=== PATIENT | female | born 1955 | race Caucasian/White ===

== ENCOUNTER 2018-10-18 02:06 | Outpatient (CLI) | payer BC, SELFPAY ==
[2018-10-18 10:58] LABS: Hemoglobin A1C 5.5 % (4.5-6.2)
[2018-10-18 11:38] LABS: ALT 123 U/L (12-78); AST 59 U/L (15-37); Albumin 3.7 g/dL (3.4-5.0); Alkaline Phosphatase 62 U/L (46-116); Anion Gap 9.5 mmol/L (3-11); BUN 19 mg/dL (7-18); Bilirubin, Total 0.5 mg/dL (0.2-1.0); CO2 25.5 mmol/L (21.0-32.0); Calcium 9.6 mg/dL (8.5-10.1); Chloride 104 mmol/L (98-107); FREE T4 0.83 ng/dL (0.76-1.46); Glucose 107 mg/dL (70-100); Potassium 4.7 mmol/L (3.5-5.1); Sodium 139 mmol/L (136-145); TSH 1.18 uIU/mL (0.36-3.74); Total Protein 7.5 g/dL (6.4-8.2)
[2018-10-18 11:51] LABS: Calculated LDL 163 mg/dL; Cholesterol 251 mg/dL (50-200); HDL Cholesterol 72 mg/dL (40-60); Triglyceride 83 mg/dL (30-150)
== END 2018-10-18 02:26 ==
PROVIDERS: PCP Nurse Practitioner Family; Visit Provider Nurse Practitioner Family
DX: E78.5 Hyperlipidemia, unspecified (principal)
CPT/HCPCS: 36415; 80053; 80061; 83721; 83036; 84439; 84443

== ENCOUNTER 2018-10-31 00:40 | Outpatient (CLI) | payer BC, SELFPAY ==
--- NOTE | 2018-10-31 07:21 | DI.US_ITS ---
SYMPTOM/DIAGNOSIS: ELEVATED LFT'S, ALCOHOL USE EXCESSIVE R94.5 ABDOMINAL ULTRASOUND: Routine examination was performed. The aorta is of normal caliber. The inferior vena cava is unremarkable. The liver is normal in size measuring 15.6 cm in length. There is diffuse increased echogenicity of the liver consistent with fatty infiltration. No hepatic mass is seen. The gallbladder is unremarkable. No stones, sludge, gallbladder wall thickening or pericholecystic fluid is seen. The common duct is within normal limits at 3 mm The pancreas, spleen and kidneys are unremarkable. IMPRESSION: :Increased echogenicity of the liver, diffusely. The findings are most suggestive of hepatic steatosis.
== END 2018-10-31 01:00 ==
PROVIDERS: PCP Nurse Practitioner Family; Visit Provider Nurse Practitioner Family
DX: R94.5 Abnormal results of liver function studies (principal); F10.99 Alcohol use, unspecified with unspecified alcohol-induced disorder; K76.0 Fatty (change of) liver, not elsewhere classified
CPT/HCPCS: 76700

== ENCOUNTER 2018-11-23 19:23 | Emergency (ER) | payer BC, SELFPAY ==
--- NOTE | 2018-11-23 19:28 | NUR.NOTE ---
Nursing Note: pt noticed redness and swelling in her lower left left 5 days ago pt is confidant that it started with a bug bite and the swelling gradual spread from there.
[2018-11-23 19:30] VITALS: BP 181/96; PULSE 74; RESP 16; TEMP 36.9; O2SAT 95
[2018-11-23 19:34] VITALS: RESP 16
--- NOTE | 2018-11-23 20:03 | ED.GENADUL_ITS ---
Discharge Plan Disposition Patient Disposition: HOME Condition: Stable Discharge Details Chief Complaint: GenMedical Clinical Impression: Cellulitis of left leg Primary Care Provider: Yumi Carrasco ED Provider: Maximus Hernandez Home Meds and New Rx's Prescriptions: New amoxicillin-pot clavulanate [Augmentin] 875-125 mg tablet 1 tab PO BID Qty: 14 RF: 0 sulfamethoxazole-trimethoprim [Bactrim DS] 800-160 mg tablet 1 tab PO BID Qty: 14 RF: 0 Continued Restasis MultiDose 0.05 % drops 1 drp OP Q12H RF: 0 Discharge Instructions Instructions: Cellulitis (ED) Additional Instructions: return Sunday for an ultrasoud of your leg if you have severe pain, high fevers or redness spreading up the leg return to the emergency department if not better in a week follow up with your primary care provider Medical Decision Making 63 yo female states she has had lfet leg swelling and redness since being bit by a bug last Sunday. Denies fevers, chills or severe pain. She arrives in no distress and appears well ssytemically. She has erythema of the left lower anterior leg just distal to the knee to proximal to the ankle. Has no crepitus, fluctuance or severe pain to suggest entities such as nec fasc or abscess. Given lack of fever and well appearance doubt sepsis and do not feel labs indicated, will start on PO abx and also have her return for an u/s to eval for DVT though I feel this is less likely given clinical picture fits with cellultiis. Differential Diagnosis Differential Diagnosis: cellulitis, dvt, lynphedema HPI General Mode of arrival: ambulatory . Date/Time Provider Initiated Documentation: 11/23/18 19:35 . Limitations to Documentation: no limitations . Information obtained by: patient . History of Present Illness 63 year old F presents to the emergency department with the chief complaint of left leg cellulitis, described as moderate, and is localized to the left and lower extremity. Patient started experiencing this day(s) (4) and it has been constant. No relieving factors improve symptom(s), No exacerbating factors reported . Patient notes no other symptoms.. Related Data Home Medications Medication Instructions Recorded Confirmed cyclosporine 0.05 % eye drops 1 drp OP Q12H 07/26/18 11/23/18 amoxicillin-pot clavulanate 1 tab PO BID #14 tab 11/23/18 [Augmentin] sulfamethoxazole-trimethoprim 1 tab PO BID #14 tab 11/23/18 [Bactrim DS] Previous Rx's Medication Instructions Recorded amoxicillin-pot clavulanate 1 tab PO BID #14 tab 11/23/18 [Augmentin] sulfamethoxazole-trimethoprim 1 tab PO BID #14 tab 11/23/18 [Bactrim DS] Allergies Allergy/AdvReac Type Severity Reaction Status Date / Time No Known Allergies Allergy Verified 11/23/18 19:34 General Stated Complaint: GenMedical CHICO: 3 Review of Systems Review of Systems ROS Unobtainable: All systems reviewed & are unremarkable except as noted in HPI and below Constitutional Constitutional: Denies chills, Denies fever(s) and Denies weakness ENT Ears, Nose, Mouth, and Throat: Denies change in voice Cardiovascular Cardiovascular: Denies dyspnea Respiratory Respiratory: Denies cough and Denies dyspnea Gastrointestinal Gastrointestinal: Denies abdominal pain, Denies nausea and Denies vomiting Musculoskeletal Musculoskeletal: Denies joint swelling Neurologic Neurologic: Denies weakness Endocrine Endocrine: Denies heat intolerance [facility] Medical History (Updated 11/11/18 @ 16:31 by Yumi Carrasco NP) Alcohol use disorder (Chronic) Hepatic steatosis (Chronic) Secondary to alcohol use Hyperlipidemia (Chronic) Obesity (Chronic) Surgical History History of carpal tunnel surgery of left wrist (Inactive 07/16/13) History of carpal tunnel surgery of right wrist (Inactive ~1986) S/P cubital tunnel release (Inactive 07/16/13) Left ulnar nerve release S/P trigger finger release (Inactive) Bilateral thumbs Status post left breast lumpectomy (Inactive ~1986) Benign Social History (Updated 10/29/18 @ 15:22 by Dewey Ramos) Smoking/Tobacco Use Status: Never Second Hand Exposure: Yes Alcohol Intake: current Alcohol Intake frequency: 3 or more drinks per day Alcohol type: wine Counseling given: Yes Counseling provided: provider counseling and reduce to 2 or less/day Drug use: Never Substance use type: does not use Caregiver/Support person: No Household members: spouse Housing: house Communication Needs: None Do you need help understanding health information?: Never Pets and animals: No Sexually active: Yes Do you think of yourself as: straight/heterosexual Current gender identity: female What is your relationship status?: How often do you talk on the phone with friends or family?: three or more times per week How often do you get together with friends or relatives?: three or more times per week How often do you attend druze or restorationist services?: 4 or more times per year Do you belong to any clubs or organized social groups?: yes Panel score (0-1 are the most socially isolated patients): 4 What type of physical activity do you participate in: walking Duration: 30-45 minutes/day Frequency: 5-6 times per week Nelia/Congregational: Caodaism Special nelia needs: No Seatbelt use: always Helmet use: Yes Helmet use: always Drive intox or ride w/intox commercial driver's license driver: No Do you feel safe at home: Yes Do you feel safe in your relationship?: Yes Female Reproductive History Menstrual Menopause type: natural History History 2 Para 2 Hx # Term Pregnancies Multiple births Hx # Pregnancies Ectopic pregnancies AB induced Hx Number of Living Children 2 AB spontaneous Exam Const General: no acute distress Orientation: alert HENMT Head: normal to inspection Ears: external ears normal General nose exam: external nose normal Mouth: moist mucous membranes Eyes General: appearance normal, both eyes and all related structures Neck Neck: normal visual inspection Resp Effort & Inspection: normal respiratory effort and able to speak in complete sentences Cardio Rate: regular rate Skin General skin exam: elasticity normal Neuro General: alert and oriented x3 Extrem General: full ROM Psych Mental Status: mental status grossly normal Course Vital Signs Vital signs: Vital Signs Temperature 36.9 C 11/23/18 19:30 Pulse 74 11/23/18 19:30 Respiratory Rate 16 11/23/18 19:30 Blood Pressure 181/96 H 11/23/18 19:30 Pulse Oximetry 95 11/23/18 19:30 Temperature 36.9 C 11/23/18 19:30 Temperature Source Skin 11/23/18 19:30 Pulse 74 11/23/18 19:30 Respiratory Rate 16 11/23/18 19:34 Respiratory Effort 11/23/18 19:34 Respiratory Depth Normal 11/23/18 19:34 Respiratory Pattern Normal 11/23/18 19:34 Blood Pressure 181/96 H 11/23/18 19:30 Blood Pressure Position Sitting 11/23/18 19:30 Pulse Oximetry 95 11/23/18 19:30 Oxygen Delivery Method Room Air 11/23/18 19:30 Oxygen Flow Rate 0 11/23/18 19:30 Pain Level 5 11/23/18 19:30
[2018-11-23] MEDS: Amoxicillin 875/Clav. 125 TAB PO (20:14)
[2018-11-23] MEDS: Sulfameth/Trimeth DS TAB 1 TAB PO (20:14)
[2018-11-23 20:15] VITALS: BP 181/96; PULSE 74; RESP 16; TEMP 36.9; O2SAT 95
== END 2018-11-23 20:20 | disposition home or self-care (01) ==
PROVIDERS: Emergency Provider Emergency Medicine; PCP Nurse Practitioner Family
DX: L03.116 Cellulitis of left lower limb (principal)
CPT/HCPCS: 99283

== ENCOUNTER 2018-11-25 08:18 | Outpatient (CLI) | payer BC, SELFPAY ==
--- NOTE | 2018-11-25 13:15 | DI.US_ITS ---
EXAM: US LOWER EXTREMITY VENOUS LT CLINICAL HISTORY: LT LEG SWELLING. TECHNIQUE: Ultrasound performed using standard protocol. FINDINGS: There is no evidence of DVT.
== END 2018-11-25 08:38 ==
PROVIDERS: PCP Nurse Practitioner Family; Visit Provider Emergency Medicine
DX: R22.42 Localized swelling, mass and lump, left lower limb (principal); M79.89 Other specified soft tissue disorders
CPT/HCPCS: 93971

== ENCOUNTER 2018-11-25 14:02 | Emergency (ER) | payer BC, SELFPAY ==
[2018-11-25 14:03] VITALS: BP 157/83; PULSE 65; RESP 16; TEMP 36.6; O2SAT 96
--- NOTE | 2018-11-25 14:38 | ED.GENADUL_ITS ---
Discharge Plan Disposition Patient Disposition: HOME Condition: Good Discharge Details Chief Complaint: Recheck Clinical Impression: Encounter for wound re-check Primary Care Provider: Yumi Carrasco ED Provider: Arias Laguerre Home Meds and New Rx's Prescriptions: No Action Restasis MultiDose 0.05 % drops 1 drp OP Q12H RF: 0 Ocuvite Adult 50 Plus 250-5-1 mg Capsule 1 cap PO DAILY RF: 0 amoxicillin-pot clavulanate [Augmentin] 875-125 mg tablet 1 tab PO BID Qty: 14 RF: 0 sulfamethoxazole-trimethoprim [Bactrim DS] 800-160 mg tablet 1 tab PO BID Qty: 14 RF: 0 Discharge Instructions Instructions: Cellulitis (ED) Additional Instructions: Your ultrasound is negative for any evidence of clot. Please continue taking your antibiotics. Take Tylenol and Motrin as needed for pain. Please use an Lele wrap on your lower extremity as we discussed. Please follow-up closely with your primary care provider. If you notice any spreading of the redness, chills, fever, please return immediately. If you notice any worsening of your symptoms, or any new symptoms such as vomiting, diarrhea, fever, chills, shortness of breath, chest pain, numbness, weakness, or fainting , please return immediately to the emergency department for reevaluation. Please follow up with your primary care provider as soon as possible for reassessment and reevaluation. As always, it was a pleasure participating in your medical care today. Referrals: Yumi Carrasco, PHLEBOTOMY LAB ASSISTANT [Primary Care Provider] - Medical Decision Making This is a pleasant 63-year-old female who presents for evaluation of recheck of her cellulitis. She was seen 3-1/2 days ago, has had 2 full days of antibiotics, and has noticed mild improvement of her leg. Ultrasound was read today and shows no evidence of DVT or clot. Erythema mildly improving, no fever, tachycardia or chills. Signs and symptoms appear consistent with improving cellulitis. Recommend continued NSAIDs, antibiotics, Lele wrap, elevation and close follow-up with her PCP. I have extensively reviewed the treatment plan and discharge instructions with the patient. I have addressed all patient concerns at this time. The patient was made aware of what symptoms to monitor for that would warrant a return to the emergency department. Discussed the plan with the patient, they demonstrate verbal understanding and agreement with our assessment and plan at this time. CLINICAL HISTORY: LT LEG SWELLING. TECHNIQUE: Ultrasound performed using standard protocol. FINDINGS: There is no evidence of DVT. Ordered By: Maximus Hernandez M.D. [facility] General Date/Time Provider Initiated Documentation: 11/25/18 14:10 . HPI Narrative: This is a pleasant 63-year-old female who presents today for evaluation of wound recheck. She was seen 3 to [address] Hernandez, at that time outpatient ultrasound was ordered, signs and symptoms were concerning for cellulitis and she was started on Augmentin and Bactrim. She was requested to return for wound recheck on Sunday after ultrasound. Ultrasound results have returned negative for any evidence of DVT or clot. Patient states that she has noticed improvement of the redness and swelling and pain. She denies any systemic symptoms of fever or chills. She has no other complaints at this time. No oth er modifying factors. She has been taking the antibiotics as directed. Related Data Home Medications Medication Instructions Recorded Confirmed cyclosporine 0.05 % eye drops 1 drp OP Q12H 07/26/18 11/25/18 amoxicillin-pot clavulanate 1 tab PO BID #14 tab 11/23/18 11/25/18 [Augmentin] sulfamethoxazole-trimethoprim 1 tab PO BID #14 tab 11/23/18 11/25/18 [Bactrim DS] C,E,zinc,copper [id number] 1 cap PO DAILY 11/25/18 11/25/18 [Ocuvite Adult 50 Plus] Previous Rx's Medication Instructions Recorded amoxicillin-pot clavulanate 1 tab PO BID #14 tab 11/23/18 [Augmentin] sulfamethoxazole-trimethoprim 1 tab PO BID #14 tab 11/23/18 [Bactrim DS] Allergies Allergy/AdvReac Type Severity Reaction Status Date / Time No Known Allergies Allergy Verified 11/25/18 14:08 General Stated Complaint: Recheck CHICO: 4 Review of Systems Review of Systems ROS Unobtainable: All systems reviewed & are unremarkable except as noted in HPI and below PFSH Medical History (Updated 11/11/18 @ 16:31 by Yumi Carrasco NP) Alcohol use disorder (Chronic) Hepatic steatosis (Chronic) Secondary to alcohol use Hyperlipidemia (Chronic) Obesity (Chronic) Surgical History History of carpal tunnel surgery of left wrist (Inactive 07/16/13) History of carpal tunnel surgery of right wrist (Inactive ~1986) S/P cubital tunnel release (Inactive 07/16/13) Left ulnar nerve release S/P trigger finger release (Inactive) Bilateral thumbs Status post left breast lumpectomy (Inactive ~1986) Benign Social History (Updated 10/29/18 @ 15:22 by Dewey Ramos) Smoking/Tobacco Use Status: Never Second Hand Exposure: Yes Alcohol Intake: current Alcohol Intake frequency: 3 or more drinks per day Alcohol type: wine Counseling given: Yes Counseling provided: provider counseling and reduce to 2 or less/day Drug use: Never Substance use type: does not use Caregiver/Support person: No Household members: spouse Housing: house Communication Needs: None Do you need help understanding health information?: Never Pets and animals: No Sexually active: Yes Do you think of yourself as: straight/heterosexual Current gender identity: female What is your relationship status?: How often do you talk on the phone with friends or family?: three or more times per week How often do you get together with friends or relatives?: three or more times per week How often do you attend taoism or jehovah's witness services?: 4 or more times per year Do you belong to any clubs or organized social groups?: yes Panel score (0-1 are the most socially isolated patients): 4 What type of physical activity do you participate in: walking Duration: 30-45 minutes/day Frequency: 5-6 times per week Nelia/Spiritism: Latter Day Special nelia needs: No Seatbelt use: always Helmet use: Yes Helmet use: always Drive intox or ride w/intox jukebox route driver: No Do you feel safe at home: Yes Do you feel safe in your relationship?: Yes Female Reproductive History Menstrual Menopause type: natural History History 2 Para 2 Hx # Term Pregnancies Multiple births Hx # Pregnancies Ectopic pregnancies AB induced Hx Number of Living Children 2 AB spontaneous Exam Narrative Exam Narrative: 1.Const: Well-nourished, Well-developed, appearing stated age 2.Eyes: PERRL, no conjunctival injection, and symmetrical lids. 3.ENT: Atraumatic external nose and ears. Moist MM. Neck: Symmetric, trachea midline, No thyromegaly. 4.CVS: +S1/S2, No murmurs or gallops. Peripheral pulses 2+ and equal in all extremities. Brisk capillary refill in all extremities. 5.RESP: Unlabored respiratory effort. Clear to auscultation bilaterally. No wheezes rales or rhonchi 6.GI: Soft, Nontender/Nondistended, No hepatosplenomegaly. No guarding or rebound. 7.MSK: Normocephalic/Atraumatic, Extremities w/o deformity or ttp No cyanosis or clubbing, Normal movement of all extremities. Mild swelling of the left lower extremity just proximal to the ankle and up the alcantara and calf. Mild erythema around this. No fluctuance or abscess. The area was outlined with pen. pitting edema is trace. Negative Nikolsky sign. No large vesicles or bulla. No palpable purpura. No oral lesions. No mucosal lesions. No evidence of severe cellulitis. No evidence of vaccine preventable rash. Pulses, capillary refill, and neuro exam are intact distal to the area of cellulitis 8.Skin: Warm, Dry. Please see musculoskeletal 9.Neuro: bobbin marker II-XII grossly intact. Sensation grossly intact, no focal neurologic deficits. 10.Psych: (AAO) x3. Appropriate mood and affect Course Vital Signs Vital signs: Vital Signs Temperature 36.6 C 11/25/18 14:03 Pulse 65 11/25/18 14:03 Respiratory Rate 16 11/25/18 14:03 Blood Pressure 157/83 H 11/25/18 14:03 Pulse Oximetry 96 11/25/18 14:03 Temperature 36.6 C 11/25/18 14:03 Temperature Source Skin 11/25/18 14:03 Pulse 65 11/25/18 14:03 Respiratory Rate 16 11/25/18 14:03 Respiratory Effort 11/25/18 14:09 Blood Pressure 157/83 H 11/25/18 14:03 Blood Pressure Position Sitting 11/25/18 14:03 Pulse Oximetry 96 11/25/18 14:03 Oxygen Delivery Method Room Air 11/25/18 14:03 Oxygen Flow Rate 0 11/25/18 14:03 Pain Level 1 11/25/18 14:03
[2018-11-25 14:43] VITALS: BP 157/83; PULSE 65; RESP 16; TEMP 36.6; O2SAT 96
== END 2018-11-25 14:44 | disposition home or self-care (01) ==
PROVIDERS: Emergency Provider Student in an Organized Health Care Education/Training Program; PCP Nurse Practitioner Family
DX: L03.116 Cellulitis of left lower limb (principal)
CPT/HCPCS: 99281

== ENCOUNTER 2018-12-11 01:26 | Outpatient (CLI) | payer BC, SELFPAY ==
--- NOTE | 2018-12-11 15:24 | DI.MAMMO_ITS ---
EXAM: MAMMO SCREENING CLINICAL HISTORY: screening Z12.39. TECHNIQUE: Mammograms were interpreted according to the usual protocol including computer analysis w [employer] CAD system, tomosynthesis and C-view imaging. COMPARISON: Current examination is compared with outside films of October 2017 FINDINGS: Breasts are of moderate density with fairly symmetrical distribution of fibroglandular tissue. No dom inant mass or clumped microcalcification is identified in either breast. Current examination is murali red with outside films of October 2017 and allowing for differences in technique, there has been no gr oss interval change in appearance in comparison with the previous study. IMPRESSION: No specific evidence of malignancy at this time. Routine screening examinations are suggested at year ly intervals due to the family history of breast carcinoma. Category 1, breast density category B. BI-RADS Cat 1 - Negative Breast Density - Category B - Scattered areas of fibroglandular density
== END 2018-12-11 01:46 ==
PROVIDERS: PCP Nurse Practitioner Family; Visit Provider Nurse Practitioner Family
DX: Z12.31 Encounter for screening mammogram for malignant neoplasm of breast (principal); Z80.3 Family history of malignant neoplasm of breast
CPT/HCPCS: 77063; 77067

== ENCOUNTER 2019-11-11 04:51 | Outpatient (CLI) | payer BC, SELFPAY ==
[2019-11-11 16:33] LABS: ALT 118 U/L (14-59); AST 56 U/L (15-37); Alkaline Phosphatase 73 U/L (46-116); Anion Gap 9.1 mmol/L (3-11); BUN 17 mg/dL (7-18); Bilirubin, Total 0.7 mg/dL (0.2-1.0); CO2 26.9 mmol/L (21.0-32.0); CREATININE 0.98 mg/dL (0.55-1.02); Calcium 9.8 mg/dL (8.5-10.1); Calculated LDL 164 mg/dL (<100); Chloride 100 mmol/L (98-107); Cholesterol 271 mg/dL (<200); Estimated GFR 57.32 (mL/min/1.73m2); Glucose 96 mg/dL (74-106); HDL Cholesterol 83 mg/dL (40-60); Potassium 4.2 mmol/L (3.5-5.1); Sodium 136 mmol/L (136-145); Total Protein 7.8 g/dL (6.4-8.2); Triglyceride 124 mg/dL (<150)
== END 2019-11-11 05:11 ==
PROVIDERS: PCP Nurse Practitioner Family; Visit Provider Nurse Practitioner Family
DX: E78.5 Hyperlipidemia, unspecified (principal); K76.0 Fatty (change of) liver, not elsewhere classified
CPT/HCPCS: 36415; 80053; 80061

== ENCOUNTER 2019-12-22 01:12 | Outpatient (CLI) | payer BC, SELFPAY ==
--- NOTE | 2019-12-22 06:30 | DI.MAMMO_ITS ---
EXAM: MAMMO SCREENING CLINICAL HISTORY: screening,Z12.39 TECHNIQUE: Mammograms were interpreted according to the usual protocol including computer analysis w [employer] CAD system, tomosynthesis and C-view imaging. COMPARISON: 2013 through 2018 FINDINGS: The breasts are composed of scattered fibroglandular densities, Breast Density category B. No suspicious masses or suspicious microcalcifications are seen. No skin thickening or abnormal axillary lymph nodes are seen. There has been no significant change from prior exams. IMPRESSION: BI-RADS Category 1, Negative mammogram Yearly screening mammography is recommended. Breast Density - Category B, scattered fibroglandular densities. A negative radiographic report should not delay biopsy if a dominant or clinically suspicious mass is present. Up to ten percent of cancers are not identified on mammography. A negative report may reinforce clinical impression. Adenosis and dense breasts may obscure an underlying neoplasm. False positive reports average 6 to 10%. Patient will receive a letter notifying them of these results.
== END 2019-12-22 01:32 ==
PROVIDERS: PCP Nurse Practitioner Family; Visit Provider Nurse Practitioner Family
DX: Z12.31 Encounter for screening mammogram for malignant neoplasm of breast (principal)
CPT/HCPCS: 77063; 77067

== ENCOUNTER 2021-02-23 02:07 | Outpatient (CLI) | payer BC, SELFPAY ==
--- NOTE | 2021-02-23 06:30 | DI.MAMMO_ITS ---
Exam(s) MAMMO SCREENING EXAM: MAMMO SCREENING CLINICAL HISTORY: screening,z12.39 TECHNIQUE: Bilateral full field digital CC and MLO mammographic images were obtained with 3D tomosyn thesis and utilizing computer aided detection (CAD). COMPARISON: Available for comparison. FINDINGS: Masses/Architectural Distortion: None seen. Microcalcifications: No suspicious pleomorphic-type are seen. Skin Thickening/Nipple Retraction: None. IMPRESSION: 1. No significant interval change with no specific features of malignancy noted. 2. Unless there is more urgent need, screening mammography is recommended, as per [employer] guidelines. BI-RADS Category 1 - Negative Breast Density - Category B - Scattered areas of fibroglandular density Breast density category C or D implies that the patient has dense breast tissue. Dense breast tissue is very common and is not abnormal but dense breast tissue can make it harder to find cancer on a ma mmogram. Also, dense breast tissue may increase their breast cancer risk. This information about the result of the mammogram report was provided to the patient to raise their awareness. Use this report when you speak with the patient about their risks for breast cancer, which includes their family hist ory. At that time, you may recommend for more screening tests (Ultrasound or MRI) as they might be us eful based on their risk. A negative radiographic report should not delay biopsy if a dominant or clinically suspicious mass is present. Up to ten percent of cancers are not identified on mammography. A negative report may reinforce clinical impression. Adenosis and dense breasts may obscure an underlying neoplasm. False positive reports average 6 to 10%. Patient will receive a letter notifying them of these results.
== END 2021-02-23 02:27 ==
PROVIDERS: PCP Nurse Practitioner Family; Visit Provider Nurse Practitioner Family
DX: Z12.31 Encounter for screening mammogram for malignant neoplasm of breast (principal)
CPT/HCPCS: 77063; 77067

== ENCOUNTER 2021-02-23 03:00 | Outpatient (CLI) | payer BC, SELFPAY ==
[2021-02-23 09:27] LABS: ALT 105 U/L (14-59); AST 53 U/L (15-37); Albumin 3.9 g/dL (3.4-5.0); Alkaline Phosphatase 75 U/L (46-116); Anion Gap 5.7 mmol/L (3-11); BUN 18 mg/dL (7-18); Bilirubin, Total 0.6 mg/dL (0.2-1.0); CO2 29.3 mmol/L (21.0-32.0); CREATININE 0.9 mg/dL (0.55-1.02); Calcium 9.9 mg/dL (8.5-10.1); Calculated LDL 166 mg/dL (<100); Chloride 103 mmol/L (98-107); Cholesterol 271 mg/dL (<200); Glucose 109 mg/dL (74-106); HDL Cholesterol 80 mg/dL (40-60); Potassium 5.1 mmol/L (3.5-5.1); Sodium 138 mmol/L (136-145); Triglyceride 125 mg/dL (<150)
[2021-02-24 09:36] LABS: Hepatitis C Ab w Rflx HCV PCR Negative (Negative)
== END 2021-02-23 03:01 | disposition home or self-care (01) ==
LOC: LBO 03:00
PROVIDERS: PCP Nurse Practitioner Family; Visit Provider Nurse Practitioner Family
DX: E78.5 Hyperlipidemia, unspecified (principal); K76.0 Fatty (change of) liver, not elsewhere classified; Z11.59 Encounter for screening for other viral diseases
CPT/HCPCS: 36415; 80053; 80061; 86803

== ENCOUNTER 2022-02-23 02:07 | Outpatient (CLI) | payer MEDICARE, BC, SELFPAY ==
[2022-02-23 10:25] LABS: HCT 42.9 % (36.0-46.0); HGB 14.6 g/dL (11.2-15.7); MCV 97 fL (80-95); Platelet Count 202 10^3/uL (130-400); RBC 4.43 10^6/uL (3.93-5.22); WBC 5.87 10^3/uL (4.4-10.8)
[2022-02-23 11:28] LABS: ALT 92 U/L (14-59); AST 63 U/L (15-37); Albumin 3.8 g/dL (3.4-5.0); Alkaline Phosphatase 74 U/L (46-116); Anion Gap 8.8 mmol/L (3-11); BUN 15 mg/dL (7-18); Bilirubin, Total 0.8 mg/dL (0.2-1.0); CO2 28.2 mmol/L (21.0-32.0); Calcium 10.1 mg/dL (8.5-10.1); Calculated LDL 141 mg/dL (<100); Chloride 103 mmol/L (98-107); Cholesterol 250 mg/dL (<200); Estimated GFR 62.52 (mL/min/1.73m2); Glucose 111 mg/dL (74-106); HDL Cholesterol 97 mg/dL (40-60); Potassium 4.3 mmol/L (3.5-5.1); Sodium 140 mmol/L (136-145); TSH (W/Ref FT4) 1.09 uIU/mL (0.36-3.74); Total Protein 8.1 g/dL (6.4-8.2); Triglyceride 64 mg/dL (<150)
[2022-02-23 12:00] LABS: Hemoglobin A1C 5.5 % (<5.7)
== END 2022-02-23 02:08 | disposition home or self-care (01) ==
LOC: LBO 02:08
PROVIDERS: PCP Nurse Practitioner Family; Visit Provider Nurse Practitioner Family
DX: Z00.00 Encounter for general adult medical examination without abnormal findings (principal); E78.5 Hyperlipidemia, unspecified; K70.0 Alcoholic fatty liver
CPT/HCPCS: 36415; 80053; 80061; 85027; 83036; 84443

== ENCOUNTER 2022-03-31 00:03 | Outpatient (CLI) | payer MEDICARE, BC, SELFPAY ==
--- NOTE | 2022-03-31 07:00 | DI.DEXA_ITS ---
Exam(s) XR DEXA BONE DENSITY W/WO VIJAY EXAM: XR DEXA BONE DENSITY W/WO VIJAY CLINICAL HISTORY: SCREENING FOR OSTEOPOROSIS IN POSTMENOPAUSAL WOMAN,Z78.0 TECHNIQUE: COMPARISON: No exams were available for comparison FINDINGS: Lateral Spine Image: Unremarkable. No compression deformities identified. Left hip: Total T-Score: 0.5 Total Z-Score: 1.7 T- and Z-scores: Within normal limits. Lumbar Spine: Total T-Score: -0.7 Total Z-Score: 1.1 T- and Z-scores: Within normal limits. IMPRESSION: No evidence of osteoporosis.
--- NOTE | 2022-03-31 11:52 | DI.MAMMO_ITS ---
Exam(s) MAMMO SCREENING EXAM: MAMMO SCREENING CLINICAL HISTORY: screening,Z12.39 TECHNIQUE: Bilateral full field digital CC and MLO mammographic images were obtained with 3D tomosyn thesis and utilizing computer aided detection (CAD). COMPARISON: Available for comparison. FINDINGS: Masses/Architectural Distortion: None seen. Microcalcifications: No suspicious pleomorphic-type are seen. Skin Thickening/Nipple Retraction: None. IMPRESSION: 1. No significant interval change with no specific features of malignancy noted. 2. Unless there is more urgent need, screening mammography is recommended, as per [employer] guidelines. BI-RADS Category 1 - Negative Breast Density - Category B - Scattered areas of fibroglandular density Breast density category C or D implies that the patient has dense breast tissue. Dense breast tissue is very common and is not abnormal but dense breast tissue can make it harder to find cancer on a ma mmogram. Also, dense breast tissue may increase their breast cancer risk. This information about the result of the mammogram report was provided to the patient to raise their awareness. Use this report when you speak with the patient about their risks for breast cancer, which includes their family hist ory. At that time, you may recommend for more screening tests (Ultrasound or MRI) as they might be us eful based on their risk. A negative radiographic report should not delay biopsy if a dominant or clinically suspicious mass is present. Up to ten percent of cancers are not identified on mammography. A negative report may reinforce clinical impression. Adenosis and dense breasts may obscure an underlying neoplasm. False positive reports average 6 to 10%. Patient will receive a letter notifying them of these results.
== END 2022-03-31 00:23 ==
LOC: DI 00:03
PROVIDERS: PCP Nurse Practitioner Family; Visit Provider Nurse Practitioner Family
DX: Z12.31 Encounter for screening mammogram for malignant neoplasm of breast (principal); Z78.0 Asymptomatic menopausal state; Z13.820 Encounter for screening for osteoporosis
CPT/HCPCS: 77063; 77067; 77080

== ENCOUNTER 2023-01-15 03:50 | Outpatient (CLI) | payer MEDICARE, BC, SELFPAY ==
[2023-01-15 10:31] LABS: ALT 70 U/L (14-59); AST 36 U/L (15-37); Albumin 3.6 g/dL (3.4-5.0); Alkaline Phosphatase 75 U/L (46-116); Anion Gap 7.5 mmol/L (3-11); BUN 14 mg/dL (7-18); Bilirubin, Total 0.6 mg/dL (0.2-1.0); CO2 28.5 mmol/L (21.0-32.0); Calcium 10.1 mg/dL (8.5-10.1); Calculated LDL 142 mg/dL (<100); Chloride 101 mmol/L (98-107); Cholesterol 247 mg/dL (<200); Estimated GFR 62.13 (mL/min/1.73m2); Glucose 149 mg/dL (74-106); HDL Cholesterol 86 mg/dL (40-60); Potassium 4.8 mmol/L (3.5-5.1); Sodium 137 mmol/L (136-145); Total Protein 7.9 g/dL (6.4-8.2); Triglyceride 95 mg/dL (<150)
== END 2023-01-15 03:51 | disposition home or self-care (01) ==
PROVIDERS: PCP Nurse Practitioner Family; Visit Provider Nurse Practitioner Family
DX: Z00.00 Encounter for general adult medical examination without abnormal findings (principal); E78.5 Hyperlipidemia, unspecified
CPT/HCPCS: 36415; 80053; 80061

== ENCOUNTER → 2023-05-17 02:51 | Outpatient (CLI) | payer MEDICARE, BC, SELFPAY ==
--- NOTE | 2023-05-17 15:15 | DI.MAMMO_ITS ---
Exam(s) MAMMO SCREENING EXAM: MAMMO SCREENING CLINICAL HISTORY: screening,z12.39. TECHNIQUE: Bilateral full field digital CC and MLO mammographic images were obtained with 3D tomosyn thesis and utilizing computer aided detection (CAD). COMPARISON: Prior mammograms were reviewed. FINDINGS: There has been no significant change in the appearance and distribution of the fibroglandular tissue. Partially calcified benign-appearing structure medially in left breast is unchanged from prior mammog zhang. There are no new spiculated masses nor malignant appearing microcalcification groups. There is no significant architectural distortion nor skin thickening-retraction. IMPRESSION: No radiographic evidence of malignancy. BI-RADS Category 1 - Negative Breast Density - Category B - Scattered areas of fibroglandular density Breast density Category C or D implies that the patient has dense breast tissue. Dense breast tissue can make it harder to find cancer on a mammogram. Dense breast tissue is also associated with an incr eased risk of breast cancer. This information about the result of the mammogram report was provided to the patient to raise their awareness. Use this report when you speak with the patient about their risks for breast cancer, which includes their family history. At that time, you may recommend additional screening tests (Ultrasoun d or MRI) as these tests may add significant information. A negative radiographic report should not delay biopsy if a dominant or clinically suspicious mass is present. Up to ten percent of cancers are not identified on mammography. A negative report may reinforce clinical impression. Adenosis and dense breasts may obscure an underlying neoplasm. False positive reports average 6 to 10%. Patient will receive a letter notifying them of these results.
== END ==
PROVIDERS: PCP Nurse Practitioner Family; Visit Provider Nurse Practitioner Family
DX: Z12.31 Encounter for screening mammogram for malignant neoplasm of breast (principal)
CPT/HCPCS: 77063; 77067

== ENCOUNTER 2024-02-07 03:39 | Outpatient (CLI) | payer MEDICARE, BC, SELFPAY ==
[2024-02-07 11:33] LABS: HCT 42.1 % (36.0-46.0); HGB 14.4 g/dL (11.2-15.7); MCH 33.3 pg (27.0-33.0); MCHC 34.2 % (32.0-36.0); MCV 98 fL (80-95); MPV 9.6 fL (8.0-11.0); Platelet Count 203 10^3/uL (130-400); RBC 4.32 10^6/uL (3.93-5.22); RDW 11.9 % (11.7-14.6); RDW-SD 43.3 fL; WBC 4.78 10^3/uL (4.4-10.8)
[2024-02-07 12:01] LABS: ALT 94 U/L (14-59); AST 55 U/L (15-37); Albumin 3.8 g/dL (3.4-5.0); Alkaline Phosphatase 74 U/L (46-116); Anion Gap 11.1 mmol/L (3-11); BUN 21 mg/dL (7-18); Bilirubin, Total 0.64 mg/dL (0.2-1.0); CO2 23.9 mmol/L (21.0-32.0); CREATININE 1.1 mg/dL (0.55-1.02); Chloride 103 mmol/L (98-107); Estimated GFR 55.07 (mL/min/1.73m2); Ferritin 690 ng/mL (8-252); Glucose 105 mg/dL (74-106); Potassium 4.9 mmol/L (3.5-5.1); Sodium 138 mmol/L (136-145)
[2024-02-07 20:02] LABS: HIV-1/2 Ag & Ab Screen Negative (Negative)
[2024-02-07 20:14] LABS: HBs Antibody, Quant 3.2 mIU/mL (See Note); Hep B Surface Ab Negative (See Note); Hepatitis B Core Antibody Negative (Negative); Hepatitis B Surface Antigen Negative (Negative)
== END 2024-02-07 03:40 | disposition home or self-care (01) ==
LOC: LBO 03:40
PROVIDERS: PCP Nurse Practitioner Family; Visit Provider Nurse Practitioner Family
DX: K76.0 Fatty (change of) liver, not elsewhere classified (principal); Z11.59 Encounter for screening for other viral diseases; Z11.4 Encounter for screening for human immunodeficiency virus [HIV]
CPT/HCPCS: 36415; 80053; 85027; 86704; 86706; 87340; 87389; 82728

== ENCOUNTER 2024-02-18 03:03 | Outpatient (CLI) | payer MEDICARE, BC, SELFPAY ==
[2024-02-18 14:17] LABS: Ferritin 655 ng/mL (8-252)
[2024-02-19 10:21] LABS: Transferrin 289 mg/dL (201-352)
[2024-02-21 02:49] LABS: Result Summary NEGATIVE; Specimen WB Whole Blood
== END 2024-02-18 03:04 | disposition home or self-care (01) ==
LOC: LBO 03:03
PROVIDERS: PCP Nurse Practitioner Family; Visit Provider Nurse Practitioner Family
DX: R79.89 Other specified abnormal findings of blood chemistry (principal)
CPT/HCPCS: 36415; 81256; 82728; 84466

== ENCOUNTER 2024-04-08 01:15 | Outpatient (CLI) | payer MEDICARE, BC, SELFPAY ==
[2024-04-08 14:28] LABS: Iron 144 ug/dL (50-170); Total Iron Binding Capacity 351 ug/dL (250-450)
[2024-04-08 14:43] LABS: ALT 66 U/L (14-59); AST 38 U/L (15-37); Alkaline Phosphatase 69 U/L (46-116); Bilirubin, Total 0.76 mg/dL (0.2-1.0); Ferritin 659 ng/mL (8-252); Total Protein 8.1 g/dL (6.4-8.2)
[2024-04-08 14:57] LABS: Bilirubin, Direct 0.7 mg/dL (0.0-0.2)
[2024-04-09 10:11] LABS: Transferrin 281 mg/dL (201-352)
== END 2024-04-08 01:16 | disposition home or self-care (01) ==
LOC: LBO 01:15
PROVIDERS: PCP Nurse Practitioner Family; Visit Provider Nurse Practitioner Family
DX: R79.89 Other specified abnormal findings of blood chemistry (principal)
CPT/HCPCS: 36415; 80076; 82728; 83540; 83550; 84466

== ENCOUNTER → 2024-05-01 08:47 | Outpatient (BNVA) | payer MEDICARE, BC, SELFPAY | PROVIDERS: PCP Nurse Practitioner Family; Referring Provider Nurse Practitioner Family; Visit Provider Physical Therapy Assistant | DX: Z12.11 Encounter for screening for malignant neoplasm of colon (principal); I10 Essential (primary) hypertension ==

== ENCOUNTER 2024-05-20 00:48 | Outpatient (CLI) | payer MEDICARE, BC, SELFPAY ==
--- NOTE | 2024-05-20 09:25 | DI.MAMMO_ITS ---
Exam(s) MAMMO SCREENING EXAM: MAMMO SCREENING CLINICAL HISTORY: screening,z12.39 TECHNIQUE: Mammograms were interpreted according to the usual protocol including computer analysis w [employer] CAD system, tomosynthesis and C-view imaging. COMPARISON: 2014 through 2023 FINDINGS: The breasts are composed of mainly fatty density , Breast Density category A. No suspicious masses or suspicious microcalcifications are seen. No skin thickening or abnormal axillary lymph nodes are seen. There has been no significant change from prior exams. IMPRESSION: BI-RADS Category 1, Negative mammogram Yearly screening mammography is recommended. Breast Density - Category A, fatty density. A negative radiographic report should not delay biopsy if a dominant or clinically suspicious mass is present. Up to ten percent of cancers are not identified on mammography. A negative report may reinforce clinical impression. Adenosis and dense breasts may obscure an underlying neoplasm. False positive reports average 6 to 10%. Patient will receive a letter notifying them of these results.
== END 2024-05-20 01:08 ==
LOC: DI 00:48
PROVIDERS: PCP Nurse Practitioner Family; Visit Provider Nurse Practitioner Family
DX: Z12.31 Encounter for screening mammogram for malignant neoplasm of breast (principal); R92.313 Mammographic fatty tissue density, bilateral breasts
CPT/HCPCS: 77063; 77067

== ENCOUNTER 2024-05-21 08:16 | Day surgery (SDC) | payer MEDICARE, BC, SELFPAY ==
--- NOTE | 2024-05-20 20:41 | W.PM.DSUDISC ---
Date of service: 05/21/24 Discharge Plan Disposition Patient Disposition: Home Condition: Good Discharge Details Reason For Visit: screening colonoscopy Attending Provider: Bradly Rizzo Primary Care Provider: Yumi Carrasco Home Meds and New Rx's Prescriptions: Continued losartan 50 mg tablet 50 mg PO DAILY Qty: 90 3RF tirzepatide (weight loss) 5 mg/0.5 mL pen injector 5 mg subcut QWEEK Qty: 2 0RF Zepbound 7.5 mg/0.5 mL pen injector 7.5 mg subcut QWEEK Qty: 2 0RF Discontinued bisacodyl [Dulcolax (bisacodyl)] 5 mg tablet,delayed release (DR/EC) 5 mg PO ONCE Qty: 4 0RF Rx Instructions: Take per colonoscopy instructions provided by ordering providers office polyethylene glycol 3350 17 gram/dose powder 17 g PO ONCE Qty: 238 0RF Rx Instructions: Take per colonoscopy instructions provided by ordering providers office Discharge Instructions Instructions: Colon polyps Additional Instructions: Ofelia, it was very nice to meet you today, and I hope you feel well after the procedure. Everything went very smoothly. I did find, and remove a single small polyp in your rectum. To the naked eye, it appears consistent with a hyperplastic polyp, which poses no risk at all. To be safe, however, I will send this to the pathologist for their review. Those results usually take about a week or 2 to get back, but once we have that information, my office will be in touch with definitive recommendations for your next colonoscopy. Since this polyp was quite close to your anus, expect to have a little bit of blood in the first couple stools after the colonoscopy. 1. If tolerated, consume a soft, low fiber diet for 1-2 days. 2[address] Do not drive, drink alcohol, operate machinery, make critical decisions, or do activities that require coordination or balance for 24 hours. 3. Because air was put into your colon during the procedure, expelling air from your rectum (passing gas or farting) is normal. 4. You may not have a bowel movement for 1-3 days because of the colonoscopy prep. This is normal. 5. Go directly to the emergency room if you notice any of the following: Develop chills (warm to touch), or if you have a thermometer and your temperature is above 101 Difficulty breathing or difficultly swallowing Persistent vomiting Severe abdominal pain, other than gas cramps Severe chest pain Black, tarry stools Any bleeding ? exceeding one tablespoon 6. Call your physician if the site where your intravenous was started becomes red, swollen, painful, and warm to touch. 7. Your physician has reviewed your pre-procedure medications. Please continue to take those medications as previously ordered. You will be given specific information/education regarding any changes to your medications before leaving. Stand Alone Forms: Anesthesia Discharge InstMady, Namrata Jay (DSU) Activity:: Activity as Tolerated Diet:: As Tolerated Discharge Orders Discharge Orders: Discharge Order (Routine); Ordered 05/20/24 Ordered By: Bradly Rizzo DS: Diagnosis Discharge Diagnosis (1) Encounter for screening colonoscopy: Status: Acute Asessment and Plan: Follow-up on polypectomy results
--- NOTE | 2024-05-20 20:42 | W.COLOREPORT ---
Date of service: 05/21/24 Time of Service: 10:21 Colonoscopy Report Date of procedure: 05/21/24 Pre-op diagnosis general: screening colonoscopy Post-op diagnosis procedure note: other (Rectal polyp) Procedure: colonoscopy with polypectomy Surgeon: Bradly Rizzo Anesthesia Type: General:No Airway Estimated blood loss (mL): 5 Pathology: other (0.25 cm flat rectal polyp) Complications: None Disposition: same day Indications: Ofelia is a 68 year old woman who needs her next screening colonscopy Prep: Miralax/Dulcolax Procedure Start Time: 09:50 Procedure End Time: 10:13 Retraction Time: 7 Findings: 0.25 cm flat rectal polyp Procedure Description: After the induction of anesthesia, and with the patient in left lateral decubitus position, I began by performing an external anorectal exam.? Perineum and skin were normal, as was the anal verge.? There was no evidence of external hemorrhoids.? Next, I performed a digital rectal exam.? I did appreciate any abnormal findings.? Next, I advanced a colonoscope into the rectal vault.? I performed retroflexion.? This appeared normal.? Using insufflation, I then advanced the colonoscope beyond the rectal folds and into the sigmoid colon before advancing towards the cecum.? The quality of the prep was excellent.? The scope was noted to be in the cecum by identification of the ileocecal valve and appendiceal orifice.? I then began withdrawing the colonoscope using repeated irrigation as necessary for full evaluation of the colonic mucosa. ?Once the scope was withdrawn to the level of the rectum, great care was taken to examine portions of the rectal folds.? In the midportion of the rectal vault was a 0.25 cm flat polyp. Narrowband imaging was used to assist with the analysis. Generally, the features appeared most consistent with a hyperplastic polyp, but I did go ahead and remove this with cold forceps with no issues. Finally, the scope was withdrawn and the patient was brought to the same-day surgery recovery unit as the anesthetic wore off. ?The findings and instructions were shared with the patient prior to discharge. [place] Bowel Prep [place] Bowel Prep Right Colon: 3 Left Colon: 3 Transverse Colon: 3 Total Score: 9
[2024-05-21 08:37] VITALS: BP 164/72; PULSE 58; RESP 16; TEMP 36.3; O2SAT 99
[2024-05-21] MEDS: Lactated Ringers 1,000 ML 80 ML IV (08:58)
--- NOTE | 2024-05-21 09:08 | W.ANESPRE ---
General Info Date of Service Date Performed: 05/21/24 Height: 5 ft 0.5 in Weight: 74.6 kg Body Mass Index (BMI): 31.6 Surgical Procedure: Operation Date: 05/21/24 09:50 Proposed Procedure Side Surgeon p Colonoscopy Bradly Rizzo MD Actual Procedure Side Surgeon p Colonoscopy Not Applicable Bradly Rizzo MD Pre-Op Diagnosis Post-Op Diagnosis screening colonoscopy Meds Allergies and Home Medications Allergies Allergy/AdvReac Type Severity Reaction Status Date / Time amlodipine AdvReac Mild Peripheral Verified 05/21/24 08:40 edema Home Medication ?Medication ?Instructions ?Recorded losartan 50 mg tablet 50 mg PO DAILY #90 tabs 08/20/23 tirzepatide (weight loss) 5 mg/0.5 5 mg (0.5 mL) subcut QWEEK #2 mL 03/18/24 mL subcutaneous pen injector tirzepatide (weight loss) 7.5 7.5 mg (0.5 mL) subcut QWEEK #2 mL 05/01/24 mg/0.5 mL subcutaneous pen injector (Zepbound) Current Visit Medications: Current Medications Generic Name Dose Route Start Last Admin Trade Name Freq PRN Reason Stop Dose Admin Ringer's Solution 1,000 mls @ 80 mls/hr 05/21/24 06:00 05/21/24 08:58 IV 05/21/24 23:59 80 mls/hr INFUSION JASON Administration IV Miscellaneous Supplies 1 each 05/21/24 06:00 Iv Access IV 05/21/24 23:59 DIRECTED JASON Ondansetron HCl 4 mg 05/20/24 20:43 Ondansetron 4 Mg/2 Ml Vial IVP 06/19/24 20:42 Q4H PRN PRN Nausea / Vomiting Sodium Chloride 0 ml 05/21/24 06:00 Normal Saline Flush 10 Ml Syr IV 05/21/24 23:59 PRN PRN Sodium Chloride 0 ml 05/21/24 06:00 Normal Saline 10 Ml Vial IJ 05/21/24 23:59 DIRECTED PRN Sterile Water 0 ml 05/21/24 06:00 Water,Injection,Sterile 10 Ml Vial IJ 05/21/24 23:59 DIRECTED PRN PFSH Active Problems Active Problems: Problem Status Onset Code Encounter for screening colonoscopy Acute Z12.11 Elevated ferritin Acute R79.89 Hypertension Chronic I10 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 Hyperlipidemia Chronic E78.5 Sensorineural hearing loss, bilateral Chronic H90.3 Chronic pain of right ankle Chronic M25.571, G89.29 Excessive drinking of alcohol Chronic F10.10 Obesity (BMI 30-39.9) Chronic E66.9 Arthritis of carpometacarpal (CMC) joints of both thumbs Chronic M18.0 Medical History Medical History Comments:: 05/21/24 pt had half a glass of wine 05/20/24 Surgical History Surgical History History of colonoscopy S/P trigger finger release Bilateral thumbs History of carpal tunnel surgery of left wrist (07/16/13) History of carpal tunnel surgery of right wrist (~1986) S/P cubital tunnel release (07/16/13) Left ulnar nerve release Status post left breast lumpectomy (~1986) Benign Tobacco Smoking/Tobacco Use Status: Never Passive smoking exposure: Yes Second hand exposure: Yes Alcohol Alcohol Intake: current Alcohol intake frequency: 0-2 drinks per day Alcohol type: wine and hard liquor Counseling provided: provider counseling and reduce to 2 or less/day Substance Use Substance use: Never Substance use type: does not use Prental History History 2 Para 2 Hx # Term Pregnancies Multiple births Hx # Pregnancies Ectopic pregnancies AB induced Hx Number of Living Children 2 AB spontaneous Vital Signs and Lab Results Vital Signs Most Recent Vital Signs in EMR: Most Recent Vital Signs Temp Pulse Resp BP Pulse Ox 36.3 C L 58 L 16 164/72 H 99 05/21/24 08:37 05/21/24 08:37 05/21/24 08:37 05/21/24 08:37 05/21/24 08:37 Lab Results Blood Type / Crossmatch: No Data to Display Complete Blood Count: No Data to Display Complete Metabolic Panel: No Data to Display Liver Function Panel: No Data to Display Coagulation Panel: No Data to Display Cardiac Panel: No Data to Display Arterial Blood Gas: No Data to Display Venous Blood Gas: No Data to Display Pancreas Panel: No Data to Display Thyroid Panel: No Data to Display Infectious Disease: No Data to Display Blood Cultures: No Data to Display Toxicology Panel: No Data to Display Anesthesia Assessment and Plan Anesthesia History Personal History: No History of Anesthesia Complications Family History: No Family History of Anesthesia Complications Exercise Tolerance Exercise Tolerance: Metabolic Equivalents>4 Pertinent Negatives Pertinent Negatives: No Symptoms of GERD, No Major Cardiovascular Symptoms or Complaints and No Major Pulmonary Symptoms or Complaints Cardiac & Pulmonary Exam Cardiac Exam: Normal S1/S2 Heart Sounds Pulmonary Exam: Clear Bilateral Breath Sounds Implantable Cardiac Device Does patient have a Pacemaker or an ICD?: No Airway Exam Known Difficult Airway: No Mallampati Class: 2 Mouth Opening: Normal (> 3cm) Thyromental Distance: Greater than 3 cm Neck Range of Motion: Full ROM Neck Circumference: Normal Teeth Condition: Normal Dentition ASA Classification ASA Score: ASA 2 Emergency Case?: No NPO Status NPO Status: NPO Clears >2 hours, Solids >8 hours Anesthesia Plan Resuscitation Status: Full Code Anesthesia Technique: General Anesthesia Airway Planned: Natural Airway Monitors Used: Standard Monitors
[2024-05-21 09:11] VITALS: BMI 31.6
--- NOTE | 2024-05-21 10:11 | BOWEL_PTH ---
PATIENT: Ofelia Lawrence LOC: [facility] U#:[id number] AGE/SX: 68/F ROOM: RE05/21/[address]: Bradly Rizzo MD : [id number] BED: DIS: 05/21/2024 SPEC #: [id number] RECD: 05/21/24 12:47 STATUS: [place] REQ #: [id number] JESSIE: 05/21/24 10:[address]: Bradly Rizzo DEPT: Surgical Specimen RECD BY: Riya Catalan ENTERED: 05/21/24 12:48 SP TYPE: Bowel OTHR DR: ANDREE Perez Tissues: 1 - BIOPSY BOWEL Procedures: GROSS AND MICRO LEVEL 4 Comments: [id number]
--- NOTE | 2024-05-21 10:15 | RT.EKG_ITS ---
APPROVED REPORT Exam: Resting ECG Reason for Exam: Post anesthetic, ? frequent PACs Patient Location: O HR:70 bpm ECG Measurements Heart Rate 70 AXIS SD 173 P 11 QRSd 80 QRS -14 QT 400 T 72 QTc 424 Conclusion Sinus rhythm...normal P axis, V-rate 60- 99 Atrial premature complex...SV complex w/ short R-R interval Low voltage, precordial leads...precordial leads <1.0mV
[2024-05-21 10:18] VITALS: BP 147/79; PULSE 74; RESP 16; TEMP 36.1; O2SAT 99
[2024-05-21 10:51] VITALS: BP 152/88; PULSE 75; RESP 16; TEMP 36.2; O2SAT 100
--- NOTE | 2024-05-21 11:10 | W.ANESPOSTOP ---
Postoperative Evaluation Date, Time and Location Date Performed: 05/21/24 Time Performed: 11:08 Patient Location: Day Surgery Unit Vital Signs Most Recent Imported Vital Signs: Most Recent Vital Signs Temp Pulse Resp BP Pulse Ox 36.2 C L 75 16 152/88 H 100 05/21/24 10:51 05/21/24 10:51 05/21/24 10:51 05/21/24 10:51 05/21/24 10:51 Pain Score Most Recent Pain Score: Most Recent Pain Score Pain Level 0 05/21/24 10:51 Assessment Mental Status: Awake (Alert & Oriented to Patient Baseline) Airway and Respiratory Function: Patent airway with normal (patient baseline) respiratory exam Cardiovascular Function: Hemodynamically Stable Hydration Status: Adequately Hydrated Nausea & Vomiting: No Nausea or Vomiting Pain: Pt. Denies Any Pain Peripheral Nerve Block: Patient did not receive a nerve block Postoperative Comments:: Post op EKG Normal with frequent PACs.
== END 2024-05-21 11:18 | disposition home or self-care (01) ==
LOC: SUR 08:16
PROVIDERS: PCP Nurse Practitioner Family; Visit Provider Surgery
PROC: 0DJD8ZZ Inspection of Lower Intestinal Tract, Via Natural or Artificial Opening Endoscopic (ICD-10-PCS; CPT 45378; principal; 2024-05-21 09:45)
DX: Z12.11 Encounter for screening for malignant neoplasm of colon (principal); K62.1 Rectal polyp
CPT/HCPCS: 45380; 88305; 93005; 93010; J1596; J2003; J2704

== ENCOUNTER 2025-02-10 01:26 | Outpatient (CLI) | payer MEDICARE, BC, SELFPAY ==
[2025-02-10 09:49] LABS: Abs Immature Grans 0.01 10^3/uL (0.0-0.06); HCT 41.1 % (36.0-46.0); HGB 13.9 g/dL (11.2-15.7); Immature Grans % 0.2 %; MCH 32.7 pg (27.0-33.0); MCHC 33.8 % (32.0-36.0); MCV 97 fL (80-95); MPV 9.5 fL (8.0-11.0); Platelet Count 229 10^3/uL (130-400); RBC 4.25 10^6/uL (3.93-5.22); RDW 12.2 % (11.7-14.6); RDW-SD 43.6 fL; WBC 5.67 10^3/uL (4.4-10.8)
[2025-02-10 10:06] LABS: Hemoglobin A1C 4.8 % (<5.7)
[2025-02-10 12:33] LABS: Vitamin B12 696 pg/mL (211-911)
[2025-02-10 12:34] LABS: Ferritin 376 ng/mL (7-271)
[2025-02-10 13:18] LABS: ALT 22 U/L (10-49); AST 29 U/L (<34); Albumin 4.4 g/dL (3.2-5.0); Alkaline Phosphatase 65 U/L (46-116); Anion Gap 7.6 mmol/L (3-11); BUN 16 mg/dL (9-23); Bilirubin, Total 0.7 mg/dL (0.2-1.2); CO2 28.4 mmol/L (20.0-31.0); Calcium 10.3 mg/dL (8.3-10.6); Chloride 104 mmol/L (98-107); Folate > 24.0 ng/mL (>5.38); Glucose 94 mg/dL (74-106); Potassium 4.5 mmol/L (3.5-5.1); Sodium 140 mmol/L (136-145); Total Protein 7.9 g/dL (5.7-8.2)
[2025-02-10 14:53] LABS: Cholesterol 229 mg/dL (<200); HDL Cholesterol 102 mg/dL (>40)
== END 2025-02-10 01:27 | disposition home or self-care (01) ==
PROVIDERS: PCP Nurse Practitioner Family; Visit Provider Nurse Practitioner Family
DX: K76.0 Fatty (change of) liver, not elsewhere classified (principal); I10 Essential (primary) hypertension; E78.5 Hyperlipidemia, unspecified; R73.01 Impaired fasting glucose
CPT/HCPCS: 80053; 80061; 82607; 82728; 82746; 83036; 85025